=== PATIENT | male | born 1980 | race African-American/Black ===

== ENCOUNTER 2016-08-21 18:38 | Emergency (ER) | payer SELFPAY ==
[2016-08-21 19:24] VITALS: BP 143/70
[2016-08-21] MEDS ORDERED: Ketorolac INJ* 60 MG/2 ML VIAL IM ONE (20:21)
--- NOTE | 2016-08-21 20:59 | UC ---
Skin Complaint HPI - HPI Summary HPI Summary: PT HAS HAD RECURRENT PILONIDAL ABSCESS SINCE 2012. HAS HAD I&D 3 TIMES, MOST RECENTLY LAST YEAR. OVER PAST 2 DAYS PAIN AND SWELLING HAVE RECURRED. PT HAS SUBJECTIVE FEVER AND CHILLS. HAS H/O DM BUT HAS NOT BEEN ON HIS METFORMIN FOR OVER 4 MONTHS DUE TO COST ISSUES. PT WAS USING EXTENDED RELEASE VERSION AND HAS NO INSURANCE. - History of Current Complaint Chief Complaint: UCSkin Time Seen by Provider: 08/21/16 20:40 Stated Complaint: ABCESS-LOWER BACK Hx Obtained From: Patient, Family/Mitigation Supervisor - EZEQUIEL Onset/Duration: Gradual Onset, Lasting Days, Still Present Timing: Constant Onset Severity: Moderate Current Severity: Moderate Pain Intensity: 7 Pain Scale Used: 0-10 Numeric Location: Discrete - GLUTEAL CLEFT Character: Pain, Redness Aggravating: Touch Alleviating: OTC Meds - IBUPROFEN Associated Signs & Symptoms: Positive: Fever, Chills, Tenderness. Negative: Drainage - Allergy/Home Medications Allergies/Adverse Reactions: Allergies Allergy/AdvReac Type Severity Reaction Status Date / Time No Known Allergies Allergy Verified 08/21/16 19:24 Review of Systems Constitutional: Fever, Chills Skin: Other - CYST Respiratory: Negative Cardiovascular: Negative Gastrointestinal: Negative All Other Systems Reviewed And Are Negative: Yes PMH/Surg Hx/FS Hx/Imm Hx Endocrine History Of: Reports: Diabetes - Surgical History Surgical History: None Surgery Procedure, Year, and Place[place] [facility] [place] Family History Known Family History: Positive: Hypertension, Diabetes - Social History Alcohol Use: None Substance Use Type: None Smoking Status (MU): Current Every Day Smoker Type: Cigarettes Amount Used/How Often: 2 CIG/DAY Have You Smoked in the Last Year: Yes When Did the Patient Quit Smoking/Using Tobacco: 02/2015 - Immunization History Most Recent Influenza Vaccination: 01/2015 Most Recent Tetanus Shot: 01/2015 Physical Exam Triage Information Reviewed: Yes Appearance: Well-Appearing, No Pain Distress, Well-Nourished Vital Signs: Initial Vital Signs Temp 98.1 F 08/21/16 19:19 Pulse 98 08/21/16 19:19 Resp 16 08/21/16 19:19 BP 143/70 08/21/16 19:19 Pulse Ox 97 08/21/16 19:19 Vital Signs Reviewed: Yes Eyes: Positive: Conjunctiva Clear ENT: Positive: Hearing grossly normal Neck: Positive: Supple Respiratory: Positive: No respiratory distress, No accessory muscle use Cardiovascular: Positive: Pulses Normal Abdomen Description: Positive: Soft Musculoskeletal: Positive: No Edema Neurological: Positive: Alert Psychological: Positive: Normal Response To Family, Age Appropriate Behavior Skin: Positive: Other - 7CM X 4CM AREA OF INDURATION GLUTEAL CLEFT. 3CM CENTRAL AREA OF FLUCTUANCE. TTP Course/Dx - Course Course Of Treatment: DISCUSSED I&D OF ABSCESS. PT DECLINES. WANTS TO TRY SOAKING AND ANTIBIOTICS. WILL CALL SURGERY FOR FOLLOW-UP. ADVISED TO RETURN IF SX WORSENING. - Diagnoses Provider Diagnoses: PILONIDAL ABSCESS Discharge - Discharge Plan Condition: Stable Disposition: HOME Prescriptions: Clindamycin Cap(NF) [Cleocin 300 mg Cap(NF)] 300 mg PO Q6H #40 cap metFORMIN* [Glucophage 500 MG TAB *] 500 mg PO BID #180 tab Patient Education Materials: Pilonidal Cyst (ED), Type 2 Diabetes in Adults (ED ) Referrals: Virgen Cabrera MD [Medical Doctor] - 1 Week Diana Cummins MD [Primary Care Provider] - 1 Week Additional Instructions: YOU HAVE DECLINED INCISION AND DRAINAGE OF YOUR PILONIDAL CYST TODAY. WARM/HOT COMPRESSES/SOAKS AT LEAST 4 TIMES DAILY. TAKE THE ANTIBIOTICS FOR 10 DAYS (AT [facility]). FOLLOW-UP WITH DR. CABRERA (SURGERY) FOR EVALUATION FOR EXCISION OF THIS RECURRENT LESION. UNCONTROLLED DIABETES PUTS YOU AT GREATER RISK OF RECURRENT INFECTIONS. CHECK YOUR FASTING SUGAR IN THE MORNINGS. I HAVE GIVEN YOU A RX FOR METFORMIN ( INSTANT RELEASE). THIS IS AT [facility] ($10 FOR 3 MONTH SUPPLY). FOLLOW-UP WITH YOUR PCP FOR LABS AND RE-EVALUATION OF YOUR DIABETES. DIABETIC RANGE FASTING SUGAR IS 126 AND ABOVE.
[2016-08-21] MEDS ORDERED: Clindamycin CAP* 150 MG PO ONE ×2 (21:06)
== END 2016-08-21 21:25 | disposition home or self-care (01) ==
LOC: UCEAST 18:38
DX: L05.01 Pilonidal cyst with abscess (principal); E11.9 Type 2 diabetes mellitus without complications; F17.210 Nicotine dependence, cigarettes, uncomplicated
CPT/HCPCS: 96372; 99212; A9270-GY; G0463; J1885

== ENCOUNTER 2016-08-24 14:12 | Emergency (ER) | payer SELFPAY ==
[2016-08-24 15:08] VITALS: BP 123/59
[2016-08-24] MEDS ORDERED: Lidocaine 2% W/EPI 1:100,000* 20 ML MDV ONE (15:47)
--- NOTE | 2016-08-24 15:49 | UC ---
Skin Complaint HPI - HPI Summary HPI Summary: 35 yo male with pilonidal abscess state he was started on clindamyin 2 days ago now desires an I&D missed a surgical appt to have pilonidal cyst addressed no fever - History of Current Complaint Chief Complaint: UCGeneralIllness Time Seen by Provider: 08/24/16 15:35 Stated Complaint: ABCESS-TOP OF BUTTOCKS AREA Hx Obtained From: Patient Onset/Duration: Gradual Onset, Lasting Days, Worse Since - x 2 days Timing: Constant Onset Severity: Moderate Current Severity: Moderate Pain Intensity: 6 Pain Scale Used: 0-10 Numeric Location: Other - pilonidal Character: Redness, Raised, Painful Aggravating: Touch Alleviating: Nothing Associated Signs & Symptoms: Positive: Tenderness - Allergy/Home Medications Allergies/Adverse Reactions: Allergies Allergy/AdvReac Type Severity Reaction Status Date / Time No Known Allergies Allergy Verified 08/24/16 14:55 Review of Systems Constitutional: Negative Skin: Negative Eyes: Negative ENT: Negative Respiratory: Negative Cardiovascular: Negative Gastrointestinal: Negative Genitourinary: Negative Motor: Negative Neurovascular: Negative Musculoskeletal: Negative Neurological: Negative Psychological: Negative All Other Systems Reviewed And Are Negative: Yes PMH/Surg Hx/FS Hx/Imm Hx Endocrine History Of: Reports: Diabetes - Surgical History Surgical History: None Surgery Procedure, Year, and Place: RIGHT KNEE SURGERY, [facility] [place] - Family History Known Family History: Positive: Cardiac Disease, Hypertension, Diabetes - Social History Alcohol Use: None Substance Use Type: None Smoking Status (MU): Light Every Day Tobacco Smoker Type: Cigarettes Amount Used/How Often: 2 CIG/DAY Have You Smoked in the Last Year: Yes When Did the Patient Quit Smoking/Using Tobacco: 02/2015 - Immunization History Most Recent Influenza Vaccination: 01/2015 Most Recent Tetanus Shot: 01/2015 Physical Exam Triage Information Reviewed: Yes Appearance: Well-Appearing, No Pain Distress, Well-Nourished Vital Signs: Initial Vital Signs Temp 97.3 F 08/24/16 14:57 Pulse 78 08/24/16 14:57 Resp 20 08/24/16 14:57 BP 123/59 08/24/16 14:57 Pulse Ox 100 08/24/16 14:57 Vital Signs Reviewed: Yes Eyes: Positive: Conjunctiva Clear ENT: Positive: Hearing grossly normal. Negative: Nasal congestion, Nasal drainage, Trismus, Muffled/hoarse voice Neck: Positive: Nontender, No Lymphadenopathy Respiratory: Positive: Lungs clear, Normal breath sounds, No respiratory distress, No accessory muscle use Cardiovascular: Positive: RRR, No Murmur Abdomen Description: Positive: Nontender, No Organomegaly. Negative: CVA Tenderness (R), CVA Tenderness (L), Distended, Guarding Musculoskeletal: Positive: ROM Intact, No Edema Neurological: Positive: Alert Psychological Exam: Normal Skin Exam: Other - see image Course/Dx - Diagnoses Provider Diagnoses: PILONIDAL ABSCESS Procedures - Procedure Summary Procedure Summary: Patient arrived especting I&D INCISION AND DRAINAGE OF PILONIDAL ABSCESS TIME OUT STERILE PREP ANEST WITH 4 CC 2%LIDO INCISED LARGE AMT OF US EXPRESSED TOLERATED PROCEDURE WELL STERILE DRESSING APPLIED - Incision and Drainage Site: pilonidal abscess Anesthesia: Lidocaine Instrument(s): Scalpel Discharge - Discharge Plan Condition: Stable Disposition: HOME Prescriptions: HYDROcodone/ACETAMIN 5-325 MG* [[place] 5-325 TAB*] 1 tab PO Q4H PRN #6 tab MDD 6 PRN Reason: Pain Patient Education Materials: Abscess (ED) Forms: *Work Release Referrals: Diana Cummins MD [Primary Care Provider] - If Needed Additional Instructions: sit in warm soapy tub 2-4 x day until better continue antibiotics I expect you to improve daily If not better daily please return for recheck Follow up with your surgeon for definitive care of your pilonidal cyst narcotic may cause drowsiness Images Front/Back of Body, Lg ([place]): 1 - pilonidal abscess
[2016-08-24] MEDS ORDERED: HYDROcodone/ACETAMIN 5-325 MG* 1 TAB PO ONE (16:09)
== END 2016-08-24 16:45 | disposition home or self-care (01) ==
LOC: UCEAST 14:12
DX: L05.01 Pilonidal cyst with abscess (principal); I10 Essential (primary) hypertension; E11.9 Type 2 diabetes mellitus without complications
CPT/HCPCS: 10060; 99212; G0463

== ENCOUNTER 2016-10-19 21:07 | Emergency (ER) | payer SELFPAY ==
--- NOTE | 2016-10-19 21:39 | RAD ---
HISTORY: Left shoulder injury COMPARISONS: None VIEWS: 5, Frontal internal rotation, external rotation, outlet, and axillary views of the left shoulder FINDINGS: BONE DENSITY: Normal. BONES: There is no displaced fracture. JOINTS: There is no arthropathy. ALIGNMENT: There is posterior superior subluxation of the humeral head with respect to the glenoid fossa SOFT TISSUES: Unremarkable. OTHER FINDINGS: None. IMPRESSION: POSTERIOR SUPERIOR SUBLUXATION OF THE HUMERAL HEAD WITH RESPECT TO THE GLENOID FOSSA.
[2016-10-19] MEDS ORDERED: Ibuprofen TAB* 600 MG PO ONE (21:40)
--- NOTE | 2016-10-19 22:02 | UC ---
Shoulder Pain HPI - HPI Summary HPI Summary: The patient comes in today for: 1. Left shoulder pain: Onset: tonight at 8:30 PM Palliative/provocative: Movement of the arm makes it worse. Quality: Burning. Region: Left shoulder Severity: 02/16 Time: Constant. Associated symptoms: Event: He ran into someone who was playing softball. He landed on his shoulder. From that point on he has pain. He is able to move his fingers. He has "numbness of the should arm down to the wrist." * - History of Current Complaint Chief Complaint: UCUpperExtremity Stated Complaint: HEAD & SHOULDER INJURY FROM FALL,DIZZY Hx Obtained From: Patient, Family/Lending Advisor - Allergies/Home Medications Allergies/Adverse Reactions: Allergies Allergy/AdvReac Type Severity Reaction Status Date / Time No Known Allergies Allergy Verified 10/19/16 21:15 PMH/Surg Hx/FS Hx/Imm Hx Previously Healthy: No Endocrine History: Diabetes GI/ History: Gastroesophageal Reflux - Surgical History Surgical History: None Surgery Procedure, Year, and Place: RIGHT KNEE SURGERY, [facility] - Family History Known Family History: Positive: Cardiac Disease, Hypertension, Diabetes - Social History Alcohol Use: Occasionally Substance Use Type: None Smoking Status (MU): Current Some Day Smoker Type: Cigarettes Amount Used/How Often: 2 CIG/DAY Have You Smoked in the Last Year: Yes When Did the Patient Quit Smoking/Using Tobacco: 02/2015 - Immunization History Most Recent Influenza Vaccination: 01/2015 Most Recent Tetanus Shot: 01/2015 Review of Systems Constitutional: Negative Skin: Negative Eyes: Negative ENT: Negative Respiratory: Negative Cardiovascular: Negative Gastrointestinal: Negative Genitourinary: Negative Musculoskeletal: Arthralgia All Other Systems Reviewed And Are Negative: Yes Physical Exam Triage Information Reviewed: Yes Appearance: Well-Appearing, Well-Nourished, Pain Distress - HE complains of pain of the left shoulder. Vital Signs: Initial Vital Signs Temp 98.0 F 10/19/16 21:11 Pulse 102 10/19/16 21:11 Resp 18 10/19/16 21:11 BP 140/88 10/19/16 21:11 Pulse Ox 98 10/19/16 21:11 Vital Signs Reviewed: Yes Eyes: Positive: Conjunctiva Clear ENT: Positive: Hearing grossly normal. Negative: Pharyngeal erythema, Nasal congestion, Nasal drainage, TM bulging, TM dull, TM red, Tonsillar swelling, Tonsillar exudate Dental: Negative: Gross Decay/Caries @, Dental Fracture @ Neck: Positive: Supple, Nontender, No Lymphadenopathy. Negative: Nuchal Rigidity Respiratory: Positive: Lungs clear, No respiratory distress, No accessory muscle use. Negative: Crackles, Wheezing Cardiovascular: Positive: RRR, No Murmur Abdomen Description: Positive: Nontender, No Organomegaly, Soft. Negative: Distended, Guarding Musculoskeletal: Positive: ROM Limited @ - Left Shoulder: There is a slight prominence of the left shoulder. Radial pulse was 1+/2 on the left and 2+/2 on the right. Compensation And Benefits Analyst strength was slightly less on the left than the right. The superior and lateral shoulder was numb on the left compared to the right., Other : Neurological: Positive: Alert, Muscle Tone Normal Psychological: Positive: Age Appropriate Behavior, Consolable Skin: Negative: rashes, breakdown Diagnostics - Radiology No standard instances Xray Interpretation: Positive (See Comments) - IMPRESSION: POSTERIOR SUPERIOR SUBLUXATION OF THE HUMERAL HEAD WITH RESPECT TO THE GLENOID FOSSA. Radiology Interpretation Completed By: Radiologist Shoulder Course/Dx - Course Course Of Treatment: Call was placed for Dr. Salter. Case discussed. He requested that we get a CT scan of the shoulder. This request was discussed with the x-ray tech here. She said that she does not know how to do a shoulder CT. The ER was called at [facility] and the case discussed. It was decided to send the patient to the ER for a CT of the shoulder. Patient complaning of pain. Will order morphine sulfate 4 mg to help with pain. He is going by private car to the [facility] ER. Dr. Jones is heading to the OR at [facility] for a hip dislocation. While the nurses were getting the MS for his pain, he got very angry and raised his voice cussing stating that he did not want that "shit" and was leaving. He walked out complaining of pain and would not listen to our encouragement to stay for the pain medication. - Differential Dx/Diagnosis Provider Diagnoses: Superior, posterior subluxation of the left shoulder. Discharge - Discharge Plan Condition: Stable Disposition: AGAINST MEDICAL ADVICE Patient Education Materials: Shoulder Dislocation (ED) Additional Instructions: Patient was to go to the [facility] ER, but he walked out in anger shouting so it was not clear that he was going to follow up for sure at the [facility] ER.
[2016-10-19] MEDS ORDERED: Morphine INJ* 10 MG/ML 1 ML SYRINGE IM ONE (22:40)
[2016-10-19] MEDS ORDERED: Morphine INJ* 2 MG/ML 1 ML SYRINGE IM ONE (22:45)
[2016-10-19 22:51] VITALS: BP 136/86
== END 2016-10-19 22:50 | disposition left against medical advice (07) ==
LOC: UCEAST 21:07
DX: S43.085A Other dislocation of left shoulder joint, initial encounter (principal); F17.210 Nicotine dependence, cigarettes, uncomplicated; W50.0XXA Accidental hit or strike by another person, initial encounter; Y93.64 Activity, baseball; Y92.9 Unspecified place or not applicable; K21.9 Gastro-esophageal reflux disease without esophagitis
CPT/HCPCS: 99213; A9270-GY; G0463; J2270

== ENCOUNTER 2016-10-19 23:16 | Emergency (ER) | payer SELFPAY ==
[2016-10-20] MEDS ORDERED: HYDROmorphone* 1 MG/ML 1 ML SYR IV SLOW PU ONE (00:50)
[2016-10-20] MEDS ORDERED: Morphine INJ* 10 MG/ML 1 ML SYRINGE ONE (01:47)
[2016-10-20] MEDS ORDERED: Flumazenil* 0.1 MG/ML 5 ML MDV ONE (01:47)
[2016-10-20] MEDS ORDERED: Midazolam* 1 MG/ML 10 ML VIAL (10 MG) ONE (01:47)
[2016-10-20] MEDS ORDERED: Naloxone* 0.4 MG/ML 10 ML VIAL ONE (01:47)
[2016-10-20 05:03] VITALS: BP 125/76
--- NOTE | 2016-10-20 05:19 | ED ---
I, Oh,Clement, scribed for Job Bustos MD on 10/20/16 at 0135 . Upper Extremity Pain - HPI Summary HPI Summary: This 35 y/o male presents to ED from [facility] for left shoulder dislocation since 1900 PM this evening. Pt was playing softball at the time of onset when he hit baseman and dislocated the joint. First time dislocating shoulder. Movement makes the shoulder pain worse. Rest alleviates the pain. Pt last ate at 1700 PM. Plan of care involving CT imaging and joint reduction is discussed with pt and female family member present at bedside. - History of Current Complaint Chief Complaint: EDExtremityUpper Stated Complaint: LT SHOULDER DISLOCATION Time Seen by Provider: 10/20/16 01:28 Hx Obtained From: Patient Onset/Duration: Started Hours Ago, Traumatic, Still Present Timing: Constant Pain Location: Shoulder - left Character: Dull Aggravating Factor(s): Movement Alleviating Factor(s): Rest Associated Signs & Symptoms: Negative: Fever - Allergies/Home Medications Allergies/Adverse Reactions: Allergies Allergy/AdvReac Type Severity Reaction Status Date / Time No Known Allergies Allergy Verified 10/19/16 21:15 PMH/Surg Hx/FS Hx/Imm Hx Endocrine/Hematology History: Reports: Hx Diabetes Respiratory History: Reports: Hx Sleep Apnea GI History: Reports: Hx Gastroesophageal Reflux Disease - ACID REFLUX - ON MEDS Sensory History: Denies: Hx Contacts or Glasses, Hx Hearing Aid Opthamlomology History: Denies: Hx Contacts or Glasses - Surgical History Surgery Procedure, Year, and Place: RIGHT KNEE SURGERY, [facility] Hx Anesthesia Reactions: No Infectious Disease History: No Infectious Disease History: Reports: History Other Infectious Disease - chronic abscess Denies: Traveled Outside the [place] in Last 30 Days - Family History Known Family History: Positive: Cardiac Disease, Hypertension, Diabetes - Social History Alcohol Use: Occasionally Hx Substance Use: No Substance Use Type: Reports: None Hx Tobacco Use: Yes Smoking Status (MU): Current Some Day Smoker Type: Cigarettes Amount Used/How Often: 2 CIG/DAY Have You Smoked in the Last Year: Yes Review of Systems Negative: Fever, Chills Positive: Other - left shoulder pain secondary to dislocation All Other Systems Reviewed And Are Negative: Yes Physical Exam Triage Information Reviewed: Yes Vital Signs On Initial Exam: Initial Vitals Temp Pulse Resp BP Pulse Ox 97.8 F 82 18 146/88 100 10/19/16 23:22 10/19/16 23:22 10/19/16 23:22 10/19/16 23:22 10/19/16 23:22 Vital Signs Reviewed: Yes Appearance: Positive: Well-Appearing, Pain Distress - moderate discomfort Skin: Positive: Warm Head/Face: Positive: Normal Head/Face Inspection Eyes: Positive: TAYLOR ENT: Positive: Hearing grossly normal Respiratory/Lung Sounds: Positive: Breath Sounds Present Musculoskeletal: Positive: Other - lt shoulder held in internal rotation, painful to movement, post humeral head deformity - [place] Coma Scale Coma Scale Total: 15 Procedures - Joint Reduction Joint Reduction Site: shoulder (L) Conscious Sedation: Yes - versed and morphine Reduction Attempts: 2 - unsucessful Pre-Procedure NV Exam: Yes Diagnostics - Vital Signs Vital Signs Temp Pulse Resp BP Pulse Ox 10/20/16 01:00 16 10/20/16 00:56 98 F 82 16 146/82 100 10/19/16 23:22 97.8 F 82 18 146/88 100 - Laboratory Lab Statement: Any lab studies that have been ordered have been reviewed, and results considered in the medical decision making process. - Radiology Left shoulder X-ray, post reduction Xray Interpretation: No Acute Changes - Reduced Radiology Interpretation Completed By: ED Physician - Reviewed by Dr. Bustos, ED physician and Dr. Salter, Orthopaedist consulting utility forester - CT LUE, shoulder pre reduction CT Interpretation: Positive (See Comments) - Left humberal head slightly posteriorly subluxed. Small contour defomrity along posterolateral aspect of humeral head may reperesnet Hill-Sachs fx. Evaluation for joint effusion limited by artifact. CT Interpretation Completed By: Radiologist Re-Evaluation - Re-Evaluation First Eval Comment: unable to reduce shoulder despite adequate sedation, d/w dr josue who will come to ed and take pt to or for reduction Second Eval Comment: dr josue in ed, evaluated pt, pt now able to fully move shoulder, clinically reduced and confirmed by xray, assumed that when pt fellasleep combined with medication on board shoulder reduced. Pt placed in sling Course/Dx - Course Assessment/Plan: This 35 y/o male presents to ED for left shoulder dislocation while playing softball hitting baseman. Time of onset is 1900. Pt last ate at 1700 PM. Joint reduction was attempted with procedural sedation but was unsuccessful. Timeout at 0205 AM. Physical exam findings and CT imaging results are discussed with Dr. Salter, who agrees to see the pt in ED room. [address] Salter in room. Pt is noted able to raise his arm, and the left shoulder joint appears to have reduced. - Diagnoses Provider Diagnoses: Shoulder dislocation - Physician Notifications Discussed Care of Patient With: Erick Salter Time Discussed With Above Provider: 02:19 Instructed by Provider To: MD Will See In ED Discharge - Discharge Plan Condition: Improved Disposition: HOME Patient Education Materials: Shoulder Dislocation (ED) Referrals: Erick Salter MD [Medical Doctor] - If Needed Diana Cummins MD [Primary Care Provider] - 2 Days The documentation as recorded by the Alton leigh Soohyun accurately reflects the service I personally performed and the decisions made by , Job Bustos MD.
--- NOTE | 2016-10-20 08:01 | RAD ---
INDICATION: Left shoulder dislocation COMPARISON: Shoulder radiographs from same day and October 19, 2016. TECHNIQUE: Noncontrast CT examination of the left shoulder. Axial images were acquired and sagittal and coronal reformats were created and independently analyzed. FINDINGS: Depicted well on the axial plane images there is a concave deformity along the anterior inferior aspect of the left humerus (axial image 30 of 88) in which the posterior inferior bony glenoid labrum articulates. The humeral head relative to the bony glenoid labrum appears to be slightly dislocated posteriorly with internal rotation. No focal fracture is visualized. Remaining bones and soft tissues are grossly normal. 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 This deformity is associated with an elevated risk of avascular necrosis of the humeral head. Advise prompt orthopedic evaluation. At the time of CT image acquisition the humeral head appears to be slightly posteriorly subluxated relative to the bony glenoid labrum with internal rotation.
--- NOTE | 2016-10-20 08:05 | RAD ---
INDICATION: Post left shoulder reduction COMPARISON: Shoulder radiograph from October 19, 2016 TECHNIQUE: 3 views of the left shoulder were obtained. FINDINGS: Although the shoulder appears to be anatomically aligned there is a slight concave deformity of the articulating surface of the humeral head. No focal fracture is identified. IMPRESSION: NO DEFINITE FRACTURE OR PERSISTENT DISLOCATION AFTER LEFT SHOULDER REDUCTION.
== END 2016-10-20 05:50 | disposition home or self-care (01) ==
LOC: ED 23:16
DX: S43.005A Unspecified dislocation of left shoulder joint, initial encounter (principal); W51.XXXA Accidental striking against or bumped into by another person, initial encounter; Y93.64 Activity, baseball; Y92.320 Baseball field as the place of occurrence of the external cause; E11.21 Type 2 diabetes mellitus with diabetic nephropathy; G47.30 Sleep apnea, unspecified; K21.9 Gastro-esophageal reflux disease without esophagitis; Z72.0 Tobacco use
CPT/HCPCS: 23650; 96374; 99284; J1170; J2250; J2270; J2310

== ENCOUNTER 2017-04-30 18:38 | Emergency (ER) | payer MEDICAID, OTHER ==
--- NOTE | 2017-04-30 18:51 | UC ---
Skin Complaint HPI - HPI Summary HPI Summary: Pt presents with complaining of abscess intergluteal cleft. He tells me that for the last 3 years he has had a reoccurring pilonidal cyst/abscess in this area. It has been at least twice a year for 3 years. Each time he will have Clindamycin to "bring it to a head" and then it will pop on its own or he will come into the clinic to have it lanced. He was referred to a general surgeon at one point, but he never made a follow up and that surgeon has since left the area. He would like a new referral today. He denies fever, chills, SOB , chest pain, abdominal pain, N/V/D/C. - History of Current Complaint Time Seen by Provider: 04/30/17 18:51 Stated Complaint: TAIL BONE PAIN Hx Obtained From: Patient Onset/Duration: Gradual Onset Skin Exposure Onset/Duration: Days Ago Timing: Constant Onset Severity: Mild Current Severity: Mild Pain Intensity: 2 Pain Scale Used: 0-10 Numeric - Allergy/Home Medications Allergies/Adverse Reactions: Allergies Allergy/AdvReac Type Severity Reaction Status Date / Time No Known Allergies Allergy Verified 04/30/17 18:52 Review of Systems Constitutional: Negative Skin: Other - Abscess upper buttocks Respiratory: Negative Cardiovascular: Negative Gastrointestinal: Negative All Other Systems Reviewed And Are Negative: Yes PMH/Surg Hx/FS Hx/Imm Hx Endocrine History: Diabetes GI/ History: Gastroesophageal Reflux - Surgical History Surgical History: Yes Surgery Procedure, Year, and Place: RIGHT KNEE SURGERY, [facility] - Family History Known Family History: Positive: Cardiac Disease, Hypertension, Diabetes - Social History Occupation: Employed Full-time Lives: With Family Alcohol Use: Occasionally Substance Use Type: None Smoking Status (MU): Current Some Day Smoker Type: Cigarettes Amount Used/How Often: 2 CIG/DAY Have You Smoked in the Last Year: Yes When Did the Patient Quit Smoking/Using Tobacco: 02/2015 Household Exposure Type: Cigarettes Cessation Counseling: Counseled 3+Min - 10 Min - Immunization History Most Recent Influenza Vaccination: 01/2015 Most Recent Tetanus Shot: 01/2015 Physical Exam Triage Information Reviewed: Yes Appearance: Well-Appearing, No Pain Distress, Well-Nourished Vital Signs Reviewed: Yes Neck: Positive: Supple, Nontender, No Lymphadenopathy Respiratory: Positive: Chest non-tender, Lungs clear, Normal breath sounds, No respiratory distress, No accessory muscle use Cardiovascular: Positive: RRR, No Murmur, Pulses Normal Neurological: Positive: Alert Psychological: Positive: Age Appropriate Behavior Skin: Positive: Other - At the superior aspect of the intergluteal cleft there is a 5mm area of mild erythema, mild edema, and mild fluctuation. No induration. Moderate TTP. No rectal tenderness, streaking, drainage, or open sores. Course/Dx - Course Course Of Treatment: Acute on chronic pilonidal cyst vs abscess. It is not ready to be drained today. He has been sensitive to clindamycin in the past, therefore we will start therapy with clindamycin and have him return in 5-10 days - or when abscess is ready to drain. I have provided him the number for a new general surgeon to follow up with [facility]. - Differential Diagnoses - Skin Complaint Differential Diagnoses: Abscess - Diagnoses Provider Diagnoses: Pilonidal abscess Discharge - Discharge Plan Condition: Stable Disposition: HOME Prescriptions: Clindamycin Cap(NF) [Clindamycin Cap 300 mg Cap(NF)] 300 mg PO TID #21 cap Meloxicam 7.5 mg PO BID PRN #20 tab PRN Reason: Pain Patient Education Materials: Pilonidal Cyst (ED) Referrals: Diana Cummins MD [Primary Care Provider] - Enoc Gomez MD [Medical Doctor] - As Soon As Possible Additional Instructions: If you develop a fever, SOB, chest pain, new or worsening symptoms - please call your PCP or go to the ED. Your blood pressure was high at todays visit. Please see your primary provider within 4 weeks for recheck and re-evaluation. Please call the number below to schedule a follow up appointment with Dr. Gomez (Surgeon) for their first available appointment time.
[2017-04-30 18:52] VITALS: BP 149/79
[2017-04-30] MEDS ORDERED: Clindamycin CAP* 150 MG PO ONE (19:06)
== END 2017-04-30 19:16 | disposition home or self-care (01) ==
LOC: UCEAST 18:38
DX: L05.01 Pilonidal cyst with abscess (principal); F17.210 Nicotine dependence, cigarettes, uncomplicated
CPT/HCPCS: 99212; A9270-GY; G0463

== ENCOUNTER 2017-05-05 12:45 | Emergency (ER) | payer OTHER ==
[2017-05-05 13:05] VITALS: BP 130/60
[2017-05-05] MEDS ORDERED: Lidocaine 1% MDV 20 ML INJ ONE (13:27)
[2017-05-05] MEDS ORDERED: Lidocaine 2% PF * 5 ML VIAL INJ ONE (13:31)
--- NOTE | 2017-05-05 14:13 | UC ---
Skin Complaint HPI - HPI Summary HPI Summary: Patient presents with a past with a past medical history of pilonidal cyst, and presents today with complaints of 3-5 day onset increased pain, redness and swelling of the tailbone, he states these are the same symptoms he has had in the past. He denies any pain with BM, he denies any rectal pain. He denies any fever, chills, abdominal pain, dysuria, injury or trauma. - History of Current Complaint Chief Complaint: UCSkin Time Seen by Provider: 05/05/17 13:22 Stated Complaint: SWOLLEN AREA ON BACK Hx Obtained From: Patient Onset/Duration: Gradual Onset, Lasting Days Skin Exposure Onset/Duration: Days Ago Timing: Constant Onset Severity: Moderate Current Severity: Severe Location: Discrete, Other - tailbone Character: Swelling, Redness, Raised, Painful Aggravating Factor(s): Touch Alleviating Factor(s): Nothing Associated Signs & Symptoms: Positive: Negative - Allergy/Home Medications Allergies/Adverse Reactions: Allergies Allergy/AdvReac Type Severity Reaction Status Date / Time No Known Allergies Allergy Verified 04/30/17 18:52 Review of Systems Constitutional: Negative Skin: Other - redness, swelling, flucuance noted at tailbone. measures approximately 4 cm in diameter. Eyes: Negative ENT: Negative Respiratory: Negative Cardiovascular: Negative Gastrointestinal: Negative Genitourinary: Negative Motor: Negative Neurovascular: Negative Musculoskeletal: Negative Neurological: Negative Psychological: Negative Is Patient Immunocompromised?: No All Other Systems Reviewed And Are Negative: Yes PMH/Surg Hx/FS Hx/Imm Hx Previously Healthy: Yes - Surgical History Surgical History: Yes Surgery Procedure, Year, and Place: RIGHT KNEE SURGERY, [facility] - Family History Known Family History: Positive: Cardiac Disease, Hypertension, Diabetes - Social History Occupation: Employed Full-time Lives: Alone Alcohol Use: Occasionally Substance Use Type: None Smoking Status (MU): Current Some Day Smoker Type: Cigarettes Amount Used/How Often: 2 CIG/DAY Have You Smoked in the Last Year: Yes When Did the Patient Quit Smoking/Using Tobacco: 02/2015 Household Exposure Type: Cigarettes - Immunization History Most Recent Influenza Vaccination: 01/2015 Most Recent Tetanus Shot: 01/2015 Physical Exam Triage Information Reviewed: Yes Appearance: Well-Appearing Vital Signs: Initial Vital Signs Temp 97.0 F 05/05/17 13:01 Pulse 75 05/05/17 13:01 Resp 18 05/05/17 13:01 BP 130/60 05/05/17 13:01 Pulse Ox 100 05/05/17 13:01 Vital Signs Reviewed: Yes Eye Exam: Normal ENT Exam: Normal Neck exam: Normal Neck: Positive: 1 Respiratory Exam: Normal Cardiovascular Exam: Normal Skin Exam: Normal, Other - coccyx inspection, 4 cm of flucuance noted, with surrounding mile erythma and warmth. Course/Dx - Course Course Of Treatment: Patient presents with pilonidal cysts, which was I+D in the clinic. Culture obtained and results are pending. Patient is on clindymycin , and is to follow up with Dr. Curry in the clinic this week. RX for pain medication given. Discharged home in stable condition. - Differential Diagnoses - Skin Complaint Differential Diagnoses: Other - pilonidal cyst - Diagnoses Provider Diagnoses: pilonidal cyst Procedures - Procedure Summary Procedure Summary: Patient placed in prone position, drapped and prepped in usual fashion. Time out obtained, consent obtained and procedure reviewed. Patient prepped with provadine, and lidocaine 2% 7 cc used to anesthesized the cyst, with 11 blade 3cm incision made with 1 cc of thick yellow prurulent dischaged expressed, culture obtained, results pending. Perla Jackson assisted with the drainage. DS provided. Patient tolerated well. Dr. Curry contacted will see patient in the clinic this week for follow up. - Incision and Drainage Site: coccyx Anesthesia: Local, Lidocaine Instrument(s): Scalpel, Needle Discharge - Discharge Plan Condition: Stable Disposition: HOME Prescriptions: oxyCODONE/Acetamin 5/325 MG* [Percocet 5/325 TAB*] 1 tab PO Q4H PRN #14 tab MDD 6 PRN Reason: Pain Patient Education Materials: Pilonidal Cyst (ED) Referrals: Franki Curry MD [Medical Doctor] - Diana Cummins MD [Primary Care Provider] -
--- NOTE | 2017-05-06 20:34 | UC ---
- Progress Note Progress Note: no organisms No growth Day #1 no change await final [facility] Course/Dx - Course Course Of Treatment: Patient presents with pilonidal cysts, which was I+D in the clinic. Culture obtained and results are pending. Patient is on clindymycin , and is to follow up with Dr. Curry in the clinic this week. RX for pain medication given. Discharged home in stable condition.
== END 2017-05-05 14:28 | disposition home or self-care (01) ==
LOC: UCEAST 12:45
DX: L05.01 Pilonidal cyst with abscess (principal); F17.210 Nicotine dependence, cigarettes, uncomplicated
CPT/HCPCS: 10080; 87070; 87205; 99212; G0463

== ENCOUNTER 2018-10-07 20:52 | Emergency (ER) | payer OTHER ==
[2018-10-07 21:03] VITALS: BP 177/72
[2018-10-07] MEDS ORDERED: Lidocaine 2.5%/Prilocain 2.5%* 5 GM TUBE TOPICAL ONE (21:13)
--- NOTE | 2018-10-07 22:00 | UC ---
Skin Complaint HPI - HPI Summary HPI Summary: 37 year old male with h/o DM presents with pilonidal cyst. Patient has had condition before, treated with I&D, was recommended to have surgery. Was placed on clindamycin ~ 1 week ago, area "came to a head" about 2-3 days ago. + pain with movement, sitting. no drainage noted. + chills, + sweating. - History of Current Complaint Chief Complaint: UCSkin Time Seen by Provider: 10/07/18 21:01 Stated Complaint: SORE ON LOWER BACK Hx Obtained From: Patient, Family/Oracle Drm Consultant - Onset/Duration: Sudden Onset, Lasting Weeks Skin Exposure Onset/Duration: Weeks Ago Timing: Constant Onset Severity: Mild Current Severity: Moderate Pain Intensity: 5 Pain Scale Used: 0-10 Numeric Location: Discrete Character: Pain, Redness, Raised, Painful Aggravating Factor(s): Touch Associated Signs & Symptoms: Positive: Chills, Tenderness - Allergy/Home Medications Allergies/Adverse Reactions: Allergies Allergy/AdvReac Type Severity Reaction Status Date / Time No Known Allergies Allergy Verified 10/07/18 21:03 PMH/Surg Hx/FS Hx/Imm Hx Previously Healthy: No - DM II - Surgical History Surgical History: Yes Surgery Procedure, Year, and Place: RIGHT KNEE SURGERY, [facility] - Family History Known Family History: Positive: Cardiac Disease, Hypertension, Diabetes - Social History Alcohol Use: Occasionally Substance Use Type: None Smoking Status (MU): Light Every Day Tobacco Smoker Type: Cigarettes Amount Used/How Often: 2 CIG/DAY Have You Smoked in the Last Year: Yes When Did the Patient Quit Smoking/Using Tobacco: 02/2015 Household Exposure Type: Cigarettes - Immunization History Most Recent Influenza Vaccination: 01/2015 Most Recent Tetanus Shot: 01/2015 Review of Systems All Other Systems Reviewed And Are Negative: Yes Constitutional: Positive: Chills, Fatigue Skin: Positive: Other - redness, pain at buttock Is Patient Immunocompromised?: No Physical Exam Triage Information Reviewed: Yes Appearance: Well-Appearing, Well-Nourished, Pain Distress - mild Vital Signs: Initial Vital Signs Temp 97.8 F 10/07/18 20:58 Pulse 97 10/07/18 20:58 Resp 16 10/07/18 20:58 BP 177/72 10/07/18 20:58 Pulse Ox 98 10/07/18 20:58 Vital Signs Reviewed: Yes Eyes: Positive: Conjunctiva Clear ENT: Positive: Hearing grossly normal Abdomen Description: Negative: CVA Tenderness (R), CVA Tenderness (L) Musculoskeletal Exam: Normal Neurological Exam: Normal Psychological Exam: Normal Skin: Positive: Other - raised fluctuant region over gluteal cleft, Left of midline consistent with pilonidal cyst/ abscess. + TTP. Area anes with EMLA, I&D performed with copioous amounts f purulent, foul smelling fluid extracted. Multiple tracking areas, packed with 1 inch iodoform gauze. Course/Dx - Course Course Of Treatment: I&D, patient felt much better after I&D, able to walk well and sit without pain , will follow up here with packing removal. no question s. ABX extended x 5 days - Diagnoses Provider Diagnosis: Pilonidal cyst with abscess Discharge - Sign-Out/Discharge Documenting (check all that apply): Patient Departure All imaging exams completed and their final reports reviewed: No Studies - Discharge Plan Condition: Good Disposition: HOME Prescriptions: Clindamycin Cap(NF) [Clindamycin Cap 300 mg Cap(NF)] 300 mg PO TID #15 cap Patient Education Materials: Pilonidal Cyst (ED), Acute Wound Care (ED) Referrals: Diana Cummins MD [Primary Care Provider] - Additional Instructions: - Packing needs to be changed within 48 hours, return to have re-packed - Continue antibiotics - OK to shower no bathing/ submerging wound - Change dressing after each bowel motion and shower - Return with increased pain - Billing Disposition and Condition Condition: GOOD Disposition: Home
== END 2018-10-07 22:03 | disposition home or self-care (01) ==
LOC: UCEAST 20:52
DX: L05.01 Pilonidal cyst with abscess (principal); E11.9 Type 2 diabetes mellitus without complications; F17.210 Nicotine dependence, cigarettes, uncomplicated
CPT/HCPCS: 10060; 87070; 87205; 87640; 87641; 99212; A9270-GY; G0463

== ENCOUNTER 2019-04-11 19:39 | Emergency (ER) | payer OTHER ==
[2019-04-11 19:49] VITALS: BP 152/81
--- NOTE | 2019-04-11 20:32 | UC ---
Skin Complaint HPI - HPI Summary HPI Summary: 38 yo diabetic resents with recurrent pilonidal abscess, comes today with increasing severe pain, diaphoresis and malaise. Temperature on presentation was subtherapeutic, with tachycardia. He has had at least 2 previous I+D's of pilonidal abscess, and was referred for definitive surgical intervention which was deferred because his blood sugars were too high. - History of Current Complaint Chief Complaint: UCSkin Time Seen by Provider: 04/11/19 19:56 Stated Complaint: ABCESS ON BACK Hx Obtained From: Patient Onset/Duration: Gradual Onset, Lasting Days Timing: Constant Onset Severity: Moderate Current Severity: Moderate Pain Intensity: 5 Location: Discrete Character: Swelling, Pain, Redness Aggravating Factor(s): Clothing, Touch Alleviating Factor(s): Nothing Associated Signs & Symptoms: Positive: Diaphoresis, Chills, Lightheadedness - Allergy/Home Medications Allergies/Adverse Reactions: Allergies Allergy/AdvReac Type Severity Reaction Status Date / Time No Known Allergies Allergy Verified 04/11/19 19:49 Home Medications: Home Medications Ibuprofen 400 mg PO ONCE 04/11/19 [History Confirmed 04/11/19] PMH/Surg Hx/FS Hx/Imm Hx Endocrine History: Diabetes - Surgical History Surgical History: Yes Surgery Procedure, Year, and Place: RIGHT KNEE SURGERY, [facility] - Family History Known Family History: Positive: Cardiac Disease, Hypertension, Diabetes - Social History Occupation: Employed Full-time Lives: With Family Alcohol Use: Occasionally Substance Use Type: None Smoking Status (MU): Light Every Day Tobacco Smoker Type: Cigarettes Amount Used/How Often: 2 CIG/DAY Have You Smoked in the Last Year: Yes When Did the Patient Quit Smoking/Using Tobacco: 02/2015 Household Exposure Type: Cigarettes - Immunization History Most Recent Influenza Vaccination: 01/2015 Most Recent Tetanus Shot: 01/2015 Review of Systems All Other Systems Reviewed And Are Negative: Yes Constitutional: Positive: Fatigue Skin: Positive: Other - pilonidal abscess. Eyes: Positive: Negative ENT: Positive: Negative Respiratory: Positive: Negative Cardiovascular: Positive: Negative Gastrointestinal: Positive: Negative Genitourinary: Positive: Negative Motor: Positive: Negative Neurovascular: Positive: Negative Musculoskeletal: Positive: Negative Neurological: Positive: Negative Psychological: Positive: Negative Is Patient Immunocompromised?: No Physical Exam Triage Information Reviewed: Yes Appearance: Ill-Appearing, Pain Distress - moderate Vital Signs: Initial Vital Signs Temp 96.1 F 04/11/19 19:45 Pulse 125 04/11/19 19:45 Resp 19 04/11/19 19:45 BP 152/81 04/11/19 19:45 Pulse Ox 100 04/11/19 19:45 Eye Exam: Normal ENT: Positive: Pharynx normal Neck: Positive: Supple, Nontender, No Lymphadenopathy Respiratory: Positive: Lungs clear, Normal breath sounds Cardiovascular: Positive: RRR, No Murmur, Tachycardia Musculoskeletal Exam: Normal Neurological: Positive: Alert Psychological Exam: Normal Skin Exam: Other - 13 x 10 cm area of erythema and tenderness in the buttock fold and to the left side, soft, warm, with surrounding cellulitis. No pointing. Course/Dx - Course Course Of Treatment: Advised ER treatment and evaluation of possible sepsis (subnormal temperature, tachycardia, diabetic) in the setting of large pilonidal abscess. - Differential Diagnoses - Skin Complaint Differential Diagnoses: Abscess, Other - sepsis - Diagnoses Provider Diagnosis: Pilonidal abscess of aryan cleft Discharge ED - Sign-Out/Discharge Documenting (check all that apply): Patient Departure All imaging exams completed and their final reports reviewed: No Studies - Discharge Plan Condition: Stable Disposition: TRANS HIGHER LVL OF CARE FAC Patient Education Materials: Abscess (ED) Referrals: Diana Cummins MD [Primary Care Provider] - Additional Instructions: Please go straight to the emergency department for treatment of pilonidal abscess with possible associated systemic infection. You are being referred to the ER because you are diabetic, with possible associated sepsis. - Billing Disposition and Condition Condition: STABLE Disposition: Trans Higher Lvl of Care Fac
== END 2019-04-11 20:53 | disposition short-term general hospital (02) ==
LOC: UCEAST 19:39
DX: L05.01 Pilonidal cyst with abscess (principal); R61 Generalized hyperhidrosis; R42 Dizziness and giddiness; E11.9 Type 2 diabetes mellitus without complications; Z79.84 Long term (current) use of oral hypoglycemic drugs; F17.210 Nicotine dependence, cigarettes, uncomplicated
CPT/HCPCS: 99212; G0463

== ENCOUNTER 2019-04-11 21:01 | Emergency (ER) | payer OTHER ==
[2019-04-11 22:22] LABS: INR 1.21 (0.82-1.09)
[2019-04-11 22:33] LABS: Albumin 4.5 g/dL (3.2-5.2); Albumin/Globulin Ratio 1.1 (1-3); BUN/Creatinine Ratio 12.8 (8-20); C Reactive Protein 115.59 mg/L (<8.01); Calcium 10.1 mg/dL (8.6-10.3); EGFR African American 91.6 (>60); EGFR Non-African American 75.7 (>60); Globulin 4.2 g/dL (2-4); Potassium 3.7 mmol/L (3.5-5.0); Total Protein 8.7 g/dL (6.4-8.9)
[2019-04-11 22:41] LABS: ABS Basophils 0.1 10^3/ul (0-0.2); ABS Eosinophils 0.1 10^3/ul (0-0.6); ABS Lymphocytes 1.7 10^3/ul (1.0-4.8); ABS Monocytes 1.8 10^3/ul (0-0.8); ABS Neutrophils 14.7 10^3/ul (1.5-7.7); ABS Nucleated RBC 0.1 10^3/ul; Eosinophil % 0.3 %; Hematocrit 38 % (42-52); Hemoglobin 12.1 g/dL (14.0-18.0); Mean Corpuscular HGB Conc 32 g/dL (31-36); Mean Corpuscular Hemoglobin 19 pg (27-31); Mean Corpuscular Volume 60 fL (80-94); Mean Platelet Volume 9.3 fL (7.4-10.4); Nucleated Red Blood Cells % 0.3; Platelet Count 294 10^3/uL (150-450); Red Blood Count 6.27 10^6 /uL (4.18-5.48); Red Cell Distribution Width 15 % (10-15); White Blood Count 18.3 10^3/uL (3.5-10.8)
[2019-04-11 22:43] LABS: Microcytosis 2+; Tear Drop Cells 1+
[2019-04-12] MEDS ORDERED: Morphine 10 MG/ML VIAL (1 ml) IV ONE (00:18)
--- NOTE | 2019-04-12 00:26 | ED ---
Skin Complaint - HPI Summary HPI Summary: Patient is a 38 y/o M w/ Hx of pilonidal abscess who presents to [facility] with complaints of abscess to his lower back. Abscess has progressively worsened after its onset two days ago. He endorses experiencing back cramps. Patient notes multiple previous episodes of pilonidal abscesses that required drainage and he notes that this current presentation feels similar to these past episodes. On triage, pain is rated 10/10. Home medications and allergies are reviewed. - History of Current Complaint Chief Complaint: EDBackInjuryPain Stated Complaint: ABSCESS ON BACK PER PT Hx Obtained From: Patient Onset/Duration: Started Days Ago, Still Present, Worse Since Skin Exposure Onset/Duration: Days Ago, Worse Since: Timing: Constant, Lasting Days Pain Intensity: 10 Pain Scale Used: 0-10 Numeric Skin Location: Other: - lower back Character: Pain, Painful Associated Signs & Symptoms: Negative - Allergy/Home Medications Allergies/Adverse Reactions: Allergies Allergy/AdvReac Type Severity Reaction Status Date / Time No Known Allergies Allergy Verified 04/11/19 19:49 PMH/Surg Hx/FS Hx/Imm Hx Endocrine/Hematology History: Reports: Hx Diabetes Denies: Hx Thyroid Disease Cardiovascular History: Denies: Hx Hypertension, Hx Pacemaker/ICD Respiratory History: Reports: Hx Sleep Apnea Denies: Hx Asthma, Hx Chronic Obstructive Pulmonary Disease (COPD) GI History: Reports: Hx Gastroesophageal Reflux Disease - ACID REFLUX - ON MEDS Denies: Hx Ulcer History: Denies: Hx Renal Disease Sensory History: Denies: Hx Contacts or Glasses, Hx Hearing Aid Opthamlomology History: Denies: Hx Contacts or Glasses Psychiatric History: Denies: Hx Panic Disorder - Cancer History Cancer Type, Location and Year: gerd - Surgical History Surgery Procedure, Year, and Place: RIGHT KNEE SURGERY, [facility] [place] Hx Anesthesia Reactions: No Infectious Disease History: No Infectious Disease History: Reports: History Other Infectious Disease - chronic abscess Denies: Hx Clostridium Difficile, Hx Hepatitis, Hx Human Immunodeficiency Virus (HIV), Hx of Known/Suspected MRSA, Hx Shingles, Hx Tuberculosis, Hx Known/ Suspected VRE, Hx Known/Suspected VRSA, Traveled Outside the [place] in Last 30 Days - Family History Known Family History: Positive: Cardiac Disease, Hypertension, Diabetes - Social History Alcohol Use: Occasionally Hx Substance Use: No Substance Use Type: Reports: None Hx Tobacco Use: Yes Smoking Status (MU): Light Every Day Tobacco Smoker Type: Cigarettes Amount Used/How Often: 2 CIG/DAY Have You Smoked in the Last Year: Yes Review of Systems Negative: Fever - on vitals, temp is 98 F Skin: Other - pos - pilonidal abscess All Other Systems Reviewed And Are Negative: Yes Physical Exam - Summary Physical Exam Summary: Appearance: Well-appearing, Well-nourished, lying in bed comfortably Skin: Pilonidal abscess at the top of the inter-gluteal fold. There is tenderness but no definite pointing. Eyes: sclera anicteric, no conjunctival pallor ENT: mucous membranes moist, pharynx appears normal Neck: Supple, nontender Respiratory: Clear to auscultation, no signs of respiratory distress Cardiovascular: Normal S1, S2. No murmurs. Normal distal pulses in tibial and radial bilaterally. Abdomen: Soft, nontender, normal active bowel sounds present Musculoskeletal: Normal, Strength/ROM Intact Neurological: A&Ox3, awake and alert, mentation is normal, speech is fluent and appropriate Psychiatric: affect is normal, does not appear anxious or depressed Triage Information Reviewed: Yes Vital Signs On Initial Exam: Initial Vitals Temp Pulse Resp BP Pulse Ox 98 F 135 20 151/97 99 04/11/19 21:09 04/11/19 21:09 04/11/19 21:09 04/11/19 21:09 04/11/19 21:09 Vital Signs Reviewed: Yes Procedures - Procedure Summary Procedure Summary: Incision and drainage of pilonidal abscess was performed. Bupivacaine, .5% was used for anesthesia. Abscess was incised with an 11 blade, large amount of pus drained. Patient is stable pre and post procedure. Pads were placed on area. - Sedation Patient Received Moderate/Deep Sedation with Procedure: No - Incision and Drainage Buttocks Site: Pilonidal abscess, lower back Anesthesia: Other - bupivacaine Instrument(s): Scalpel Diagnostics - Vital Signs Vital Signs Temp Pulse Resp BP Pulse Ox 04/11/19 23:12 98.0 F 134 20 111/69 04/11/19 21:09 98 F 135 20 151/97 99 - Laboratory Lab Results: Lab Results 04/11/19 04/11/19 04/11/19 Range/Units 22:00 22:00 22:00 WBC 18.3 H (3.5-10.8) 10^3/uL RBC 6.27 H (4.18-5.48) 10^6 /uL Hgb 12.1 L (14.0-18.0) g/dL Hct 38 L (42-52) % MCV 60 L (80-94) fL MCH 19 L (27-31) pg MCHC 32 (31-36) g/dL RDW 15 (10-15) % Plt Count 294 (150-450) 10^3/uL MPV 9.3 (7.4-10.4) fL Neut % (Auto) 80.3 % Lymph % (Auto) 9.0 % [place] % (Auto) 10.0 % Eos % (Auto) 0.3 % Baso % (Auto) 0.4 % Absolute Neuts (auto) 14.7 H (1.5-7.7) 10^3/ul Absolute Lymphs (auto) 1.7 (1.0-4.8) 10^3/ul Absolute Monos (auto) 1.8 H (0-0.8) 10^3/ul Absolute Eos (auto) 0.1 (0-0.6) 10^3/ul Absolute Basos (auto) 0.1 (0-0.2) 10^3/ul Absolute Nucleated RBC 0.1 10^3/ul Nucleated RBC % 0.3 Hypochromasia 2+ Microcytosis 2+ Target Cells 1+ Tear Drop Cells 1+ Hem Pathologist Commnt Pending INR (Anticoag Therapy) 1.21 H (0.82-1.09) Sodium 136 (135-145) mmol/L Potassium 3.7 (3.5-5.0) mmol/L Chloride 102 (101-111) mmol/L Carbon Dioxide 23 (22-32) mmol/L Anion Gap 11 (2-11) mmol/L BUN 14 (6-24) mg/dL Creatinine 1.09 (0.67-1.17) mg/dL Est GFR ( Amer) 91.6 (>60) Est GFR (Non-Af Amer) 75.7 (>60) BUN/Creatinine Ratio 12.8 (8-20) Glucose 149 H (70-100) mg/dL Lactic Acid (0.5-2.0) mmol/L Calcium 10.1 (8.6-10.3) mg/dL Total Bilirubin 2.00 H (0.2-1.0) mg/dL AST 44 H (13-39) U/L ALT 75 H (7-52) U/L Alkaline Phosphatase 71 (34-104) U/L C-Reactive Protein 115.59 H (<8.01) mg/L Total Protein 8.7 (6.4-8.9) g/dL Albumin 4.5 (3.2-5.2) g/dL Globulin 4.2 H (2-4) g/dL Albumin/Globulin Ratio 1.1 (1-3) 04/11/19 Range/Units 22:00 WBC (3.5-10.8) 10^3/uL RBC (4.18-5.48) 10^6 /uL Hgb (14.0-18.0) g/dL Hct (42-52) % MCV (80-94) fL MCH (27-31) pg MCHC (31-36) g/dL RDW (10-15) % Plt Count (150-450) 10^3/uL MPV (7.4-10.4) fL Neut % (Auto) % Lymph % (Auto) % [place] % (Auto) % Eos % (Auto) % Baso % (Auto) % Absolute Neuts (auto) (1.5-7.7) 10^3/ul Absolute Lymphs (auto) (1.0-4.8) 10^3/ul Absolute Monos (auto) (0-0.8) 10^3/ul Absolute Eos (auto) (0-0.6) 10^3/ul Absolute Basos (auto) (0-0.2) 10^3/ul Absolute Nucleated RBC 10^3/ul Nucleated RBC % Hypochromasia Microcytosis Target Cells Tear Drop Cells Hem Pathologist Commnt INR (Anticoag Therapy) (0.82-1.09) Sodium (135-145) mmol/L Potassium (3.5-5.0) mmol/L Chloride (101-111) mmol/L Carbon Dioxide (22-32) mmol/L Anion Gap (2-11) mmol/L BUN (6-24) mg/dL Creatinine (0.67-1.17) mg/dL Est GFR ( Amer) (>60) Est GFR (Non-Af Amer) (>60) BUN/Creatinine Ratio (8-20) Glucose (70-100) mg/dL Lactic Acid 1.2 (0.5-2.0) mmol/L Calcium (8.6-10.3) mg/dL Total Bilirubin (0.2-1.0) mg/dL AST (13-39) U/L ALT (7-52) U/L Alkaline Phosphatase (34-104) U/L C-Reactive Protein (<8.01) mg/L Total Protein (6.4-8.9) g/dL Albumin (3.2-5.2) g/dL Globulin (2-4) g/dL Albumin/Globulin Ratio (1-3) Result Diagrams: 04/11/19 22:00 04/11/19 22:00 Lab Statement: Any lab studies that have been ordered have been reviewed, and results considered in the medical decision making process. - CT PELVIC CT CT Interpretation Completed By: Radiologist Summary of CT Findings: PELVIC CT IMPRESSION: 1. There is mild bilateral inguinal lymphadenopathy. 2. Within the intergluteal cleft is a peripherally enhancing loculated fluid. collection with surrounding inflammatory fat stranding measuring 6.2 x 4.9 x. 9.0 cm suspicious for pilonidal abscess. The abscess begins at the skin surface. or just deep to the epidermal layer and additionally extends nearly to the. level of the coccyx and lower sacrum with maximum depth of 5 cm from the. epidermal surface. THIS REPORT WAS REVIEWED BY DR. HANSON. - Ultrasound BEDSIDE US Ultrasound Interpretation Completed By: ED Physician Summary of Ultrasound Findings: Bedside US showed large collection of pus at inter-gluteal fold area. Course/Dx - Course Course Of Treatment: Patient is a 38 y/o M w/ Hx of pilonidal abscess who presents to [facility] with complaints of abscess to his lower back. Abscess has progressively worsened after its onset two days ago. He endorses experiencing back cramps. Patient notes multiple previous episodes of pilonidal abscesses that required drainage and he notes that this current presentation feels similar to these past episodes. On exam, there is pilonidal abscess at the top of the inter-gluteal fold. There is tenderness but no definite pointing. Bedside US showed large collection of pus. Bloodwork was obtained. Abnormal values include WBC 18.3, RBC 6.27, Hgb 12.1, Hct 38, MCV 60, MCH 19, absolute neuts 14.7, absolute monos 1.8, INR 1.21, glucose 149, total bilirubin 2, AST 44 , ALT 75, CRP 115.59, globulin 5.2. During ED course, patient received morphine [address] IMPRESSION: 1. There is mild bilateral inguinal lymphadenopathy. 2. Within the intergluteal cleft is a peripherally enhancing loculated fluid. collection with surrounding inflammatory fat stranding measuring 6.2 x 4.9 x. 9.0 cm suspicious for pilonidal abscess. The abscess begins at the skin surface. or just deep to the epidermal layer and additionally extends nearly to the. level of the coccyx and lower sacrum with maximum depth of 5 cm from the. epidermal surface. Incision and drainage of pilonidal abscess was performed. Bupivacaine, .5% was used for anesthesia. Abscess was incised with an 11 blade, large amount of pus drained. Patient is stable pre and post procedure. Pads were placed on area. Patient was given 1 tab of Bactrim in ED. He was discharged to home with prescription of Percocet and Bactrim. Patient to follow up with surgery. - Diagnoses Provider Diagnoses: Pilonidal abscess Discharge ED - Sign-Out/Discharge Documenting (check all that apply): Patient Departure - DISCHARGE - Discharge Plan Condition: Stable Disposition: HOME Prescriptions: oxyCODONE/Acetamin 5/325 MG* [Percocet 5/325 TAB*] 2 tab PO Q4H PRN #10 tab MDD 6 PRN Reason: Pain - Severe Sulfamethox/Trimethoprim DS* [Bactrim DS 800/160 TAB*] 1 tab PO BID #14 tab Patient Education Materials: Pilonidal Cyst (ED), Abscess (ED) Forms: *Work Release Referrals: Franki Curry MD [Medical Doctor] - 3 Days Additional Instructions: We seemed to get very good drainage of this abscess but it is quite large and may ultimately need a more definitive procedure by a surgeon. For now do sitz baths 3-4 times daily, take the antibiotics, and change the dressing/pad as needed. I would like one of our surgeons to take a look at this later in the week to see how it is healing and see if a larger procedure is needed, so call the office listed first thing in the morning. They should be able to give you an appt for or Wednesday. - Billing Disposition and Condition Condition: STABLE Disposition: Home - Attestation Statements Document Initiated by Fransisca: Yes Documenting Scribe: JOYCELYN MEMBRENO Provider For Whom Fransisca is Documenting (Include Credential): RONNIE HANSON MD Scribe Attestation: I, JOYCELYN MEMBRENO, scribed for RONNIE HANSON MD on 04/13/19 at 0541. Scribe Documentation Reviewed: Yes Provider Attestation: The documentation as recorded by the JOYCELYN leigh accurately reflects the service I personally performed and the decisions made by me, RONNIE HANSON MD Status of Scribe Document: Viewed
[2019-04-12] MEDS ORDERED: Iodixanol* (CONTRAST) 320 MG/ML 100 ML SDV IV ONE (00:35)
[2019-04-12] MEDS ORDERED: Sulfamethox/Trimethoprim DS 800/160* TAB PO ONE (02:51)
[2019-04-12 04:06] VITALS: BP 131/81
== END 2019-04-12 04:05 | disposition home or self-care (01) ==
LOC: ED 21:01
DX: L02.212 Cutaneous abscess of back [any part, except buttock and flank] (principal); E11.9 Type 2 diabetes mellitus without complications; G47.30 Sleep apnea, unspecified; K21.9 Gastro-esophageal reflux disease without esophagitis; F17.210 Nicotine dependence, cigarettes, uncomplicated; Z79.899 Other long term (current) drug therapy
CPT/HCPCS: 10060; 36415; 72193; 80053; 83605; 85025; 85060; 85610; 86140; 87070; 87205; 96374; 99283; A9270-GY; J2270; Q9967